=== PATIENT | male | born 1940 | race Caucasian/White ===

== ENCOUNTER 2019-12-22 13:18 | Emergency (ER) | payer MEDICARE, BC ==
[2019-12-22] MEDS ORDERED: Lidocaine 1% 10 ML MDV INJECT ONE (13:39)
[2019-12-22] MEDS ORDERED: Diphtheria,Pertussis(Acell),Tetanus Vaccine 0.5 ML Syringe IM ONE (13:57)
--- NOTE | 2019-12-22 14:01 | EDM.PDOC ---
ED HPI GENERAL MEDICAL PROBLEM - General Stated Complaint: RT THUMB INJURY Time Seen by Provider: 12/22/19 13:36 Source of Information: Reports: Patient History Limitations: Reports: No Limitations - History of Present Illness INITIAL COMMENTS - FREE TEXT/NARRATIVE: Patient is an unfortunate 79-year-old male who presents emergency Department today with complaint right thumb injury. Patient reports he was in his normal state of health until approximately 20 minutes prior to arrival when he was cutting meat with a meat saw and cut his right thumb. Patient has a 2 cm flap-like laceration on the medial aspect of the distal phalanx of his right thumb. Patient does not know when his last tetanus shot was. Distal neurovascular intact patient is right hand dominant Right Finger-Thumb Pain Score (Numeric/FACES): 2 - Related Data Allergies Allergy/AdvReac Type Severity Reaction Status Date / Time No Known Allergies Allergy Verified 12/22/19 14:07 Home Meds: Home Meds Clopidogrel [Plavix] 12/22/19 [History] Levothyroxine Sodium [Synthroid] 12/22/19 [History] Metoprolol Tartrate 12/22/19 [History] Simvastatin 12/22/19 [History] Tamsulosin HCl [Flomax] 12/22/19 [History] cephALEXin [Keflex] 500 mg PO QID #28 cap 12/22/19 [Rx] hydroCHLOROthiazide [Hydrochlorothiazide] 12/22/19 [History] lisinopriL [Lisinopril] 12/22/19 [History] Review of Systems - Review of Systems Review Of Systems: See Below Constitutional: Denies: Chills, Fever Musculoskeletal: Reports: Other (lac thumb R) ED EXAM, GENERAL - Physical Exam Exam: See Below Exam Limited By: No Limitations General Appearance: Alert, WD/WN, Mild Distress Respiratory/Chest: No Respiratory Distress, Lungs Clear, Normal Breath Sounds, No Accessory Muscle Use, Chest Non-Tender Cardiovascular: Normal Peripheral Pulses, Regular Rate, Rhythm, No Edema, No Gallop, No JVD, No Murmur, No Rub GI/Abdominal: Normal Bowel Sounds, Soft, Non-Tender, No Organomegaly, No Distention, No Abnormal Bruit, No Mass Extremities: Other (2 cm flap-like laceration on the medial aspect of the right thumb distal phalanx, nail was involved, distal neurovascular is intact, no foreign body, no active bleeding) Neurological: Alert Skin Exam: Warm, Dry ED TRAUMA EXTREMITY PROCEDURES - Additional/Other Procedure(s) Other (Free Text) Procedure(s): Laceration repair: Right thumb, 2 cm flap-like laceration, does involve the medial aspect of the nail, no tendon dysfunction, digital block lidocaine 1% 78 males, complete anesthesia was obtained, wound was cleansed and irrigated early with NS and Betadine, wound was closed with 4-0 Ethilon #5 simple interrupted sutures, patient tolerated procedure well, dressing by nursing Course - Vital Signs Last Recorded V/S: Last Vital Signs Temp 98.0 F 12/22/19 13:34 Pulse 58 L 12/22/19 13:34 Resp 18 12/22/19 13:34 BP 130/84 12/22/19 13:34 Pulse Ox 95 12/22/19 13:34 - Orders/Labs/Meds Orders: Active Orders 24 hr Category Date Time Status Vaccines to be Administered [RC] PER UNIT ROUTINE Care 12/22/19 13:57 Active Fingers Thumb Rt F5 [CR] Stat Exams 12/22/19 13:50 Taken Meds: Medications Discontinued Medications Generic Name Dose Route Start Last Admin Trade Name Freq PRN Reason Stop Dose Admin Diphtheria/Tetanus/Acell Pertussis 0.5 ml 12/22/19 13:57 Adacel IM 12/22/19 13:58 .ONCE ONE Lidocaine HCl 10 ml 12/22/19 13:39 12/22/19 14:15 Xylocaine 1% INJECT 12/22/19 13:40 10 ml ONETIME ONE Administration - Re-Assessments/Exams Free Text/Narrative Re-Assessment/Exam: 12/22/19 14:21 Right thumb interpreted by me NAD Departure - Departure Time of Disposition: 14:21 Disposition: Home, Self-Care 01 Condition: Good Clinical Impression: Laceration of right thumb Qualifiers: Encounter type: initial encounter Damage to nail status: with damage Foreign body presence: without foreign body Qualified Code(s): S61.111A - Laceration without foreign body of right thumb with damage to nail, initial encounter - Discharge Information Prescriptions: cephALEXin [Keflex] 500 mg PO QID #28 cap Referrals: Nikhil Sanchez MD [Primary Care Provider] - Additional Instructions: Home, rest, keep wound clean and dry, clean wound daily apply Neosporin and bandage, sutures out in 5-7 days, return as needed for worsening condition Sepsis Event Note - Evaluation Sepsis Screening Result: No Definite Risk - Focused Exam Vital Signs: Vital Signs Temp Pulse Resp BP Pulse Ox 12/22/19 13:34 98.0 F 58 L 18 130/84 95 Date Exam was Performed: 12/22/19 Time Exam was Performed: 14:21 - My Orders Last 24 Hours: My Active Orders 12/22/19 13:50 Fingers Thumb Rt F5 [CR] Stat 12/22/19 13:57 Vaccines to be Administered [RC] PER UNIT ROUTINE - Assessment/Plan Last 24 Hours: My Active Orders 12/22/19 13:50 Fingers Thumb Rt F5 [CR] Stat 12/22/19 13:57 Vaccines to be Administered [RC] PER UNIT ROUTINE
--- NOTE | 2019-12-22 14:37 | CR ---
Right thumb: 3 views of the right thumb were obtained. Comparison: No previous study. Mild degenerative change is noted within the IP joint and MCP joint. Mild degenerative change is noted within the CMC joint. No acute fracture, dislocation or other bony abnormality is seen. No soft tissue foreign body is seen. Impression: 1. Mild degenerative change as noted above. 2. No acute osseous finding is seen. Diagnostic code #2 Study was dictated in [place] Standard Time
== END 2019-12-22 14:54 | disposition home or self-care (01) ==
LOC: JD.ED 13:18
DX: S61.111A Laceration without foreign body of right thumb with damage to nail, initial encounter (principal); Z23 Encounter for immunization; Z79.02 Long term (current) use of antithrombotics/antiplatelets; Z79.899 Other long term (current) drug therapy; W26.8XXA Contact with other sharp object(s), not elsewhere classified, initial encounter
CPT/HCPCS: 12001; 73140; 90471; 90715; 99282; J2001; 99283